=== PATIENT | female | born 1980 | race Caucasian/White ===

== ENCOUNTER 2022-03-25 06:34 | Day surgery (SDC) | payer BC, OTHER ==
[~2022-03-25 06:34] MED LIST: Acetaminophen 325 MG Tab PO SCH; Lidocaine 1%/Sod Bicarbonate in NS 8.4% 1 ML Syringe IDERM PRN; Pregabalin 25 MG Cap PO SCH; Sodium Chloride 0.9% 10 ML Syringe FLUSH PRN; Sodium Chloride 0.9% 10 ML Syringe FLUSH SCH; oxyCODONE ER 10 MG TAB.ER PO SCH
[2022-03-25] MEDS: Lactated Ringers 1,000 ML IV SCH ×2 (06:44→10:38)
[2022-03-25] MEDS ORDERED: fentaNYL 100 MCG/2 ML SDV ONE (07:27)
[2022-03-25] MEDS ORDERED: Propofol 200 MG/20 ML SDV ONE (07:27)
[2022-03-25] MEDS ORDERED: Midazolam 1 MG/ML 2 ML SDV ONE (07:28)
[2022-03-25] MEDS ORDERED: Ondansetron 4 MG/2 ML SDV ONE (07:29)
[2022-03-25] MEDS ORDERED: ceFAZolin 2 GM Vial ONE (07:29)
[2022-03-25] MEDS ORDERED: EPINEPHrine 1 MG/ML SDV ONE (07:46)
[2022-03-25] MEDS ORDERED: Ropivacaine 0.5% 5 MG/ML 30 ML SDV ONE (07:47)
[2022-03-25] MEDS: Tranexamic Acid 1,000 MG/10 ML Vial ONE ×2 (08:04→09:31)
[2022-03-25] MEDS: Vancomycin 1 GM SDV ONE ×2 (08:05→09:31)
[2022-03-25] MEDS: Morphine 8 MG, EPINEPHrine 0.3 MG, Cefuroxime 750 MG, Ketorolac 30 MG, Sodium Chloride ... PRN ×10 (08:05→09:26)
[2022-03-25] MEDS ORDERED: ePHEDrine 50 MG/ML SDV ONE (09:01)
[2022-03-25] MEDS ORDERED: Lactated Ringers 1,000 ML ONE ×2 (09:04)
[2022-03-25] MEDS ORDERED: HYDROmorphone 0.5 MG/0.5 ML Syringe IVPUSH PRN (09:19)
[2022-03-25] MEDS ORDERED: fentaNYL 100 MCG/2 ML SDV IVPUSH PRN (09:19)
[2022-03-25] MEDS ORDERED: Labetalol 100 MG/20 ML MDV ONE (09:49)
[2022-03-25] MEDS ORDERED: Acetaminophen/HYDROcodone 325-5 MG Tab PO SCH (11:31)
[2022-03-25] MEDS ORDERED: diphenhydrAMINE 50 MG/ML SDV IVPUSH SCH (11:41)
[2022-03-25] MEDS ORDERED: diphenhydrAMINE 50 MG/ML SDV ONE (11:43)
== END 2022-03-25 14:57 | disposition home or self-care (01) ==
LOC: JD.SDS 06:34
PROVIDERS: ATTEND Orthopaedic Surgery
DX: M17.11 Unilateral primary osteoarthritis, right knee (principal); F41.9 Anxiety disorder, unspecified; J30.9 Allergic rhinitis, unspecified; U07.1 COVID-19; E78.5 Hyperlipidemia, unspecified; E61.1 Iron deficiency; E55.9 Vitamin D deficiency, unspecified; Z88.0 Allergy status to penicillin; Z79.899 Other long term (current) drug therapy; Z98.890 Other specified postprocedural states; Z79.82 Long term (current) use of aspirin
CPT/HCPCS: 0055T; 27599; 64447; 73560; 97116; 97161; A9270; C1713; C1776; J0171; J0690; J0697; J1200; J1885; J2250; J2270; J2405; J2704; J2795; J3010; J3370; J3490; J7120; 01400; 64450